=== PATIENT | female | born 1990 | race Two or more races ===

== ENCOUNTER 2019-09-28 17:23 | Emergency (ER) | payer OTHER ==
[~2019-09-28] VITALS: Ht 154.9 cm; Wt 58.1 kg
== END 2019-09-28 20:52 | disposition home or self-care (01) ==
LOC: ER 17:23
DX: N93.8 Other specified abnormal uterine and vaginal bleeding (principal)

== ENCOUNTER → 2021-07-19 | Emergency (ER) | payer OTHER ==
[~2021-07-19] VITALS: Ht 149.9 cm; Wt 59.0 kg
== END | disposition left against medical advice (07) ==
LOC: ER 18:11
DX: Z53.21 Procedure and treatment not carried out due to patient leaving prior to being seen by health care provider (principal)

== ENCOUNTER 2021-07-20 12:14 | Emergency (ER) | payer OTHER ==
[~2021-07-20] VITALS: Ht 149.9 cm; Wt 59.0 kg
== END 2021-07-20 20:01 | disposition left against medical advice (07) ==
LOC: ER 12:14
DX: B34.8 Other viral infections of unspecified site (principal); Z20.822 Contact with and (suspected) exposure to COVID-19; Z53.21 Procedure and treatment not carried out due to patient leaving prior to being seen by health care provider